=== PATIENT | female | born 1975 | race Caucasian/White ===

== ENCOUNTER → 2016-07-28 | Outpatient (CLI) | payer OTHER ==
[~2016-07-28] MED LIST: AMT10 PO; EFF/375 PO; ERGO1CAP35 PO; ESTR1TAB2 PO; LORA-741 PO; PROG100C6 PO; PRT40 PO
--- NOTE | 2016-07-28 12:33 | DIAGNOSTIC IMAGING REPORT ---
PELVIC ULTRASOUND CLINICAL HISTORY: Endometriosis. Ovarian remnant syndrome. Previous hysterectomy and BSO. COMPARISON STUDY: Pelvic ultrasound December 27, 2015. TECHNIQUE: Transabdominal and transvaginal sonography of the pelvis was performed. FINDINGS: No free fluid is identified. The uterus and ovaries are surgically absent. No pelvic masses are identified by sonography. IMPRESSION: No pelvic masses identified by sonography. Electronically signed by: Junior Nixon M.D. 07/28/2016 12:31 PM Dictated Date/Time: 07/28/2016 12:30 PM
== END | disposition home or self-care (01) ==
LOC: C.ULTR 11:27
PROVIDERS: ATTEND Nurse Practitioner
DX: N99.83 Residual ovary syndrome (principal); N80.9 Endometriosis, unspecified; R10.2 Pelvic and perineal pain